=== PATIENT | male | born 1980 | race Caucasian/White ===

== ENCOUNTER 2019-12-07 08:02 | Day surgery (SDC) | payer SELFPAY ==
--- NOTE | 2019-12-05 15:20 | RAD_ITS ---
STUDY: X-RAY CHEST REASON FOR EXAM: Male, 39 years old. pre op heart cath next week TECHNIQUE: Frontal and lateral views of the chest. COMPARISON: None. FINDINGS: There is hyperinflation of the lungs consistent with chronic obstructive lung disease (COPD). No infiltrates. No effusions. There is no demonstrated pleural abnormality. Normal size heart. Normal mediastinum and che. Normal visualized pulmonary arteries. Normal visualized aortic arch and descending thoracic aorta. Normal visualized thoracic spine. Normal visualized ribs, clavicles, and shoulders. There is no demonstrated abnormality of the visualized soft tissue structures of the upper abdomen. RAD/Chest PA and Lateral IMPRESSION: There are findings consistent with COPD. There is no evidence of acute chest disease. Electronically Signed: Brennan Larsen MD at 18:40 EDT , Service support ,
[2019-12-05 15:48] LABS: Absolute Lymphocyte Count 2.51 X10^3/uL (0.83-4.51); Basophil# 0.03 X10^3/uL; Basophil% 0.4 % (0-1); Eosinophil# 0.19 X10^3/uL; Eosinophils% 2.6 % (0-5); Hematocrit 43.6 % (40-54); Hemoglobin 14.4 g/dL (13.0-16.5); Lymphocyte # 2.51 X10^3/ul (4.0); Lymphocyte % 33.9 % (19-41); Mean Corpuscular Hgb 28.5 pg (27.0-32.0); Mean Corpuscular Volume 86.3 fL (80-94); Mean Platelet Vol. 9.4 fl (6.2-12.0); Monocyte# 0.68 X10^3/uL; Monocyte% 9.2 % (0-10); NRBC Flagged by Analyzer 0 % (0-5); Neutrophil # 3.98 X10^3/uL (2.7-7.7); Neutrophil % 53.6 % (47-70); Platelet Count 265 K/mm3 (150-450); RBC Distribution Width CV 12.5 % (11.6-14.6); RBC Distribution Width SD 39.4 fl (35.1-43.9); Red Blood Count 5.05 M/mm3 (4.6-6.2); White Blood Count 7.4 K/mm3 (4.4-11.0)
[2019-12-05 16:15] LABS: Anion Gap 3 (5-15); BUN 19 mg/dL (7-18); BUN/Creat Ratio 19.6 RATIO (10-20); Calcium,Total 9.2 mg/dL (8.5-10.1); Chloride 107 mmol/L (98-107); Creatinine, Serum 0.97 mg/dL (0.70-1.30); EST Glomerular Filtration Rate 91 mL/min (>60); Est Glom Filt Rate - Afr Amer 110 mL/min (>60); Glucose 79 mg/dL (74-106); Potassium 4.1 mmol/L (3.5-5.1); Sodium Level 139 mmol/L (136-145)
--- NOTE | 2019-12-07 11:09 | CL.D_ITS ---
Patient Name: LOLLY CADE Study Date: 12/07/2019 Performing: Ronan Randall MD Ht: 74.01 inches 188 cm : 1980 Wt: 233.69 lbs 106 kg Age: 39 Gender: male BSA: 2.32 PROCEDURE(S) PERFORMED AZ75-IHQ/COR/LV CLINICAL PROFILE AND INDICATIONS Indications: Suspected CAD Heart Failure: None Stress/Imaging Stress/Image Study Performed: No CAD Presentations: Unstable angina. CONCLUSIONS Normal coronary arteries Normal LV size, wall motion,and systolic function RECOMMENDATIONS Medical therapy DESCRIPTION OF PROCEDURE The patient arrived to the procedure lab. The risks and benefits of the procedure as well as a full d escription of our services here and current unavailability of surgical backup were fully explained to the patient and/or their significant other prior to the catheterization. The Timeout was completed, verifying the correct patient and procedure. The patient's procedural site was prepped and draped in the usual fashion. Local anesthetic was given subcutaneously to right radial region with Lidocaine 2% . Using a modified Seldinger technique, arterial access was obtained via the right radial artery, a 6 Fr sheath was inserted. Left Coronary Artery selective angiography was performed in multiple views u sing a 5 Fr. 4.0 [place] catheter. Right Coronary Artery selective angiography was then performed in mu ltiple views using a 5 Fr. 4.0 [place] catheter. Left Ventriculography was performed in QUIROZ projection using a 5 Fr. Pigtail catheter. LV to AO pullback pressures were then recorded.The arterial sheath was pulled and a TR Band was applied for hemostasis-12 cc air CORONARY ANGIOGRAPHY DOMINANCE: Right Dominant LEFT HEART ASSESSMENT Left Ventricular Ejection Fraction: by LV Gram 60 % Normal LV wall motion Normal Left Ventricular systolic function Normal Left Ventricular systolic function LEFT MAIN: Angiographically normal LEFT ANTERIOR DESCENDING ARTERY: Angiographically normal CIRCUMFLEX ARTERY: Angiographically normal RIGHT CORONARY ARTERY: Angiographically normal COMPLICATIONS No Complications PROCEDURE MEDICATIONS Versed 1 mg IV Fentanyl 50 mcg IV Oxygen: 2 L/min via nasal cannula Heparin diluted in 23cc Heparinized saline. Patient given 10cc IA of this solution. 12/07/2019 10:33:5 8 Verapamil 2.5mg, Ntg 100mcgs, 2000 units of Heparin diluted in 23cc Heparinized saline. Patient give n 10cc IA of this solution. 12/07/2019 10:33:58 SUMMARY OF HEMODYNAMIC DATA Time AIR REST ECG 08:57:41 AO 100/76 (88) SA 10:36:15 LV 96/8, 11 10:44:12 LV 87/12, 24 10:44:19 LV 79/8, 10 10:45:17 LVp 91/8, 13 10:45:27 AOp 112/77 (93) 10:45:32 Signed By Ronan Randall MD On 12/07/2019 11:09:04 AM Ronan Randall MD
== END 2019-12-07 12:52 | disposition home or self-care (01) ==
PROVIDERS: PCP Family Medicine; Referring Provider Internal Medicine Cardiovascular Disease; Visit Provider Internal Medicine Cardiovascular Disease
DX: I20.0 Unstable angina (principal); R07.9 Chest pain, unspecified; I25.2 Old myocardial infarction; E66.9 Obesity, unspecified; Z68.30 Body mass index [BMI] 30.0-30.9, adult; Z79.82 Long term (current) use of aspirin; Z79.02 Long term (current) use of antithrombotics/antiplatelets; Z87.891 Personal history of nicotine dependence; Z82.49 Family history of ischemic heart disease and other diseases of the circulatory system
CPT/HCPCS: 36415; 71046; 80048; 85025; 93458; 99152; 99153; Q9967; C1769; C1894

== ENCOUNTER 2024-06-15 06:30 | Day surgery (SDC) | payer SELFPAY, OTHER ==
--- NOTE | 2024-06-14 10:45 | PAT.ANESEVAL ---
Pre-Assessment Diagnosis/Proposed Procedure Planned Operative Procedure(s): CSCOPE Anesthesia History Anesthesia History - pharmacy consultant: Anesthesia History - pharmacy consultant Hx Hospitalization No 06/14/24 09:49 Any Problems With Anesthesia No 06/14/24 09:49 Cholinesterase deficiency No 06/14/24 09:49 You/Your Family Experience No 06/14/24 09:49 fever (hyperthermia) with Relationship Recent Exposure to Contagious Disease Does patient have nerve No 06/14/24 09:49 stimulator Patient instructed to have device shut off --Does patient have Pacemaker or ICD? When Was Last Pacemaker Check QUESTION #4 FULL TEXT: You/Your Family Experience fever (hyperthermia) with Anesthesia Last Oral Intake Last Oral intake: Last Oral Intake NPO since Meds taken in AM with sips of water? Meds patient instructed to take am of surgery PONV PONV - pharmacy consultant: PONV - pharmacy consultant Female No 06/14/24 09:49 HX of Motion Sickness No 06/14/24 09:49 HX of N/V After Surgery No 06/14/24 09:49 Non-Smoker Yes 06/14/24 09:49 Duration of Surgery greater No 06/14/24 09:49 than 60 minutes Number of Risk Factors 1 06/14/24 09:49 PONV Score Low Risk 06/14/24 09:49 Height & Weight Height & Weight: Anesthesia: Height & Weight Height 6 ft 2 in 04/24/24 10:34 Respiratory Assessment Respiratory Assessment - pharmacy consultant: Respiratory Tract Infection Hx - pharmacy consultant Hx Respiratory Tract Infection No 06/14/24 09:49 STOP Sleep Apnea STOP Sleep Apnea - pharmacy consultant: STOP Sleep Apnea - pharmacy consultant Hx Hypertension Yes: NO MED 06/14/24 09:49 Hx Sleep Apnea Yes: WAS SUPPOSED TO GET 06/14/24 09:49 CPAP - NO F/U CPAP No 06/14/24 09:49 BIPAP No 06/14/24 09:49 Do you snore loudly (louder No 06/14/24 09:49 than talking or can be heard Do you often feel tired/ No 06/14/24 09:49 fatigued/ sleepy during daytime? Has anyone observed you stop No 06/14/24 09:49 breathing during sleep? STOP Results Positive 06/14/24 09:49 QUESTION #5 FULL TEXT : Do you snore loudly (louder than talking or can be heard through closed doors)? Tobacco Use History Tobacco Use History - pharmacy consultant: Tobacco Use History - pharmacy consultant Tobacco Use Smoking Status Former smoker 06/14/24 09:49 Hx Tobacco Use No 06/14/24 09:49 Years Smoking Packs Smoked per Day Smoking Cessation Date was No - quit smoking greater 06/14/24 09:49 within the last 15 years than 15 years ago Hx Smoking Cessation Date 04/04/01 06/14/24 09:49 Hx Smoking Cessation Counseling Hematologic Medial History Hematologic Hx - pharmacy consultant: Hematologic Medical Hx - wic site coordinator Hx of Blood Transfusion No 06/14/24 09:49 Hx of Transfusion in last 3 No 06/14/24 09:49 Months Date of Last Transfusion (if within last 3 months) Ever experience any problems No 06/14/24 09:49 with transfusion(s)? Specify any problems Hx of Preganancy in last 3 N/A 06/14/24 09:49 Months Nurse Filling Out Transfusion NBUCHER 06/14/24 09:49 & Questions: Date: 06/14/24 06/14/24 09:49 Time: 09:51 06/14/24 09:49 Patient unable to answer at this time (ie. confused, unrespo /Reproduction History /Reproductive History - pharmacy consultant: /Reproductive Hx- pharmacy consultant Hx Now No 06/14/24 09:49 Gestational Age (in weeks): EDC: Hx Hx Para Hx Section SAB No 06/14/24 09:49 PFSH Medical History (Updated 06/14/24 @ 09:54 by Alma Kessler) Wears glasses Anxiety Former smoker Hypertension Hx of colonic polyps Daytime hypersomnolence Obesity Abnormal EKG Home Medications ?Medication ?Instructions ?Recorded ?Last Taken ?Type multivitamin 1 tab PO QDAY 04/24/24 Unknown History Allergy/AdvReac Type Severity Reaction Status Date / Time No Known Allergies Allergy Verified 06/14/24 09:49 Family History (Updated 04/24/24 @ 10:27 by Elizabeth Urrutia) Grandfather Myocardial infarction, Onset Age: 60 Mother Pacemaker Other Colon cancer Surgical History (Updated 06/14/24 @ 09:54 by Alma Kessler) Hx of colonoscopy History of left heart catheterization (12/07/19) H/O arthroscopic knee surgery Social History (Updated 04/24/24 @ 10:28 by Elizabeth Urrutia) household members: spouse current occupational status: employed 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 Status: Former smoker alcohol intake: never substance use type: does not use pavithra/congregation: Congregation 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
[2024-06-15] VITALS (7 sets, daily range): BP systolic 124–147; BP diastolic 83–101; PULSE 77–94; RESP 16–20; TEMP 36.5–37; O2SAT 96–97; BMI 30.9
--- NOTE | 2024-06-15 07:09 | PRE.ANES_ITS ---
ASA Classification* ASA Classification ASA Classification: 2 Assessment & Plan Anesthesia* Anesthesia Assessment Anesthesia Assessment: Discussed sedation and/or anesthesia options, risks, benefits, and alternatives with patient/parents/legal guardian/POA. Questions invited. The patient/parents/legal guardian/POA seems to understand and agrees to proceed with anesthesia plan. Reviewed the physical assessment, medical history, allergy history and patient home medications list prior to surgery/procedure/anesthetic and documented any changes. Performed airway and anesthesia risk assessments. Anesthesia Type Anesthesia Type: MAC Anesthesia Focused Assessment* Temperature: 97.7 F Pulse Rate: 78 Blood Pressure: 140/100 Respiratory Rate: 16 Pulse Ox: 97 Airway Assessment Mouth opens: >3 cm Mallampati Score: II Focused Labs Anesthesia Preop lab: CBC WBC 7.4 K/mm3 (4.4-11.0) 12/05/19 15:04 12/05/19 RBC 5.05 M/mm3 (4.6-6.2) 12/05/19 15:12/05/19 Hgb 14.4 g/dL (13.0-16.5) 12/05/19 15:12/05/19 Hct 43.6 % (40-54) 12/05/19 15:12/05/19 Plt Count 265 K/mm3 (150-450) 12/05/19 15:04 12/05/19 CHEMISTRY Potassium 4.1 mmol/L (3.5-5.1) 12/05/19 15:04 12/05/19 Sodium 139 mmol/L (136-145) 12/05/19 15:04 12/05/19 BUN 19 mg/dL (7-18) H 12/05/19 15:12/05/19 Creatinine 0.97 mg/dL (0.70-1.30) 12/05/19 15:12/05/19 Glucose 79 mg/dL (74-106) 12/05/19 15:12/05/19 COAG Pre-Assessment Diagnosis/Proposed Procedure Planned Operative Procedure(s): CSCOPE Anesthesia History Anesthesia History - director data analytics: Anesthesia History - director data analytics Hx Hospitalization No 06/14/24 09:49 Any Problems With Anesthesia No 06/14/24 09:49 Cholinesterase deficiency No 06/14/24 09:49 You/Your Family Experience No 06/14/24 09:49 fever (hyperthermia) with Relationship Recent Exposure to Contagious No 06/15/24 06:52 Disease Does patient have nerve No 06/14/24 09:49 stimulator Patient instructed to have device shut off --Does patient have Pacemaker No 06/15/24 06:52 or ICD? When Was Last Pacemaker Check QUESTION #4 FULL TEXT: You/Your Family Experience fever (hyperthermia) with Anesthesia Last Oral Intake Last Oral intake: Last Oral Intake NPO since 04:30 06/15/24 06:52 Meds taken in AM with sips of No 06/15/24 06:52 water? Meds patient instructed to take am of surgery PONV PONV - director data analytics: PONV - director data analytics Female No 06/14/24 09:49 HX of Motion Sickness No 06/14/24 09:49 HX of N/V After Surgery No 06/14/24 09:49 Non-Smoker Yes 06/14/24 09:49 Duration of Surgery greater No 06/14/24 09:49 than 60 minutes Number of Risk Factors 1 06/14/24 09:49 PONV Score Low Risk 06/14/24 09:49 Height & Weight Height & Weight: Anesthesia: Height & Weight Height 6 ft 2 in 06/15/24 06:52 Weight: 109.4 kg 06/15/24 06:52 Body Mass Index (BMI) 30.9 06/15/24 06:52 Respiratory Assessment Respiratory Assessment - director data analytics: Respiratory Tract Infection Hx - director data analytics Hx Respiratory Tract Infection No 06/14/24 09:49 STOP Sleep Apnea STOP Sleep Apnea - director data analytics: STOP Sleep Apnea - director data analytics Hx Hypertension Yes: NO MED 06/14/24 09:49 Hx Sleep Apnea Yes: WAS SUPPOSED TO GET 06/14/24 09:49 CPAP - NO F/U CPAP No 06/14/24 09:49 BIPAP No 06/14/24 09:49 Do you snore loudly (louder No 06/14/24 09:49 than talking or can be heard Do you often feel tired/ No 06/14/24 09:49 fatigued/ sleepy during daytime? Has anyone observed you stop No 06/14/24 09:49 breathing during sleep? STOP Results Positive 06/14/24 09:49 QUESTION #5 FULL TEXT : Do you snore loudly (louder than talking or can be heard through closed doors)? Tobacco Use History Tobacco Use History - director data analytics: Tobacco Use History - director data analytics Tobacco Use Smoking Status Former smoker 06/14/24 09:49 Hx Tobacco Use No 06/14/24 09:49 Years Smoking Packs Smoked per Day Smoking Cessation Date was No - quit smoking greater 06/14/24 09:49 within the last 15 years than 15 years ago Hx Smoking Cessation Date 04/04/01 06/14/24 09:49 Hx Smoking Cessation Counseling Hematologic Medial History Hematologic Hx - director data analytics: Hematologic Medical Hx - inflated pad buffer Hx of Blood Transfusion No 06/14/24 09:49 Hx of Transfusion in last 3 No 06/14/24 09:49 Months Date of Last Transfusion (if within last 3 months) Ever experience any problems No 06/14/24 09:49 with transfusion(s)? Specify any problems Hx of Preganancy in last 3 N/A 06/14/24 09:49 Months Nurse Filling Out Transfusion NBUCHER 06/14/24 09:49 & Questions: Date: 06/14/24 06/14/24 09:49 Time: 09:51 06/14/24 09:49 Patient unable to answer at this time (ie. confused, unrespo /Reproduction History /Reproductive History - director data analytics: /Reproductive Hx- director data analytics Hx Now No 06/14/24 09:49 Gestational Age (in weeks): EDC: Hx Hx Para Hx Section SAB No 06/14/24 09:49 PFSH Medical History Wears glasses Anxiety Former smoker Hypertension Hx of colonic polyps Daytime hypersomnolence Obesity Abnormal EKG Home Medications ?Medication ?Instructions ?Recorded ?Last Taken ?Type multivitamin 1 tab PO QDAY 04/24/24 Unkno wn History Allergy/AdvReac Type Severity Reaction Status Date / Time No Known Allergies Allergy Verified 06/15/24 06:51 Family History Grandfather Myocardial infarction, Onset Age: 60 Mother Pacemaker Other Colon cancer Surgical History Hx of colonoscopy History of left heart catheterization (12/07/19) H/O arthroscopic knee surgery Social History household members: spouse current occupational status: employed 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
--- NOTE | 2024-06-15 07:16 | PCM.HP.STD ---
HPI - General General Date of Admission: 06/15/24 Date of Service: 06/15/24 Chief Complaint: colonoscopy HPI Narrative LOLLY CADE, is a 43 M who presents for colonoscopy. His last colonoscopy was about 3 years ago. It sounds as though he had several polyps removed. He does have a positive family history for colon cancer. It sounds as though several family members who had colon cancer. He denies any recent GI symptoms or problems [facility] Medical History Wears glasses Anxiety Former smoker Hypertension Hx of colonic polyps Daytime hypersomnolence Obesity Abnormal EKG Home Medications ?Medication ?Instructions ?Recorded ?Last Taken ?Type multivitamin 1 tab PO QDAY 04/24/24 Unknown History Allergy/AdvReac Type Severity Reaction Status Date / Time No Known Allergies Allergy Verified 06/15/24 06:51 Family History Grandfather Myocardial infarction, Onset Age: 60 Mother Pacemaker Other Colon cancer Surgical History Hx of colonoscopy History of left heart catheterization (12/07/19) H/O arthroscopic knee surgery Social History household members: spouse current occupational status: employed 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 Status: Former smoker alcohol intake: never substance use type: does not use pavithra/yazidism: Mandaen additional social history: Self pay-Mandaen Aid Vital Signs Vital Signs Vital Signs: 06/15/24 06:52 06/15/24 06:52 06/15/24 07:11 Temperature 97.7 F L 97.7 F L Temperature Source Temporal Pulse Rate 78 78 Respiratory Rate 16 16 Respiratory Pattern Normal Blood Pressure 140/100 H 140/100 H Blood Pressure Mean 113 Blood Pressure Source Monitor Blood Pressure Position Semi-Fowlers Blood Pressure Location Right Arm Pulse Ox 97 97 Oxygen Delivery Method Room Air Weight Weight: 241 lb 2.971 oz Body Mass Index (BMI) 30.9 Physical Exam Const alert, oriented x3 and no apparent distress Assessment & Plan Assessment/Plan (1) Encounter for screening for malignant neoplasm of colon: PLAN: Plan Patient is a 43-year-old male in need of a surveillance colonoscopy. He has a history of polyps as well as a family history of colon cancer. We discussed the details of the planned procedure including risks benefits and alternatives. He wishes to proceed. This began momentarily Charges/Coding Visit Charges Inpatient E&M: 08601 Init Hosp L1
--- NOTE | 2024-06-15 07:47 | OP.COLON_ITS ---
Patient Name: Kevin Marcus Procedure Date: 06/15/2024 7:11 AM Date of : 1980 Age: 43 Procedure: Colonoscopy Indications: High risk colon cancer surveillance: Personal history of colonic polyps, Family history of colon cancer in a first-degree relative before age 60 years Providers: Serge Montenegro MD Referring MD: Serge Montenegro MD Medicines: Monitored Anesthesia Care Patient Profile: Refer to note in patient chart for documentation of history and physical. Last Colonoscopy: 3 years ago. Complications: No immediate complications. Estimated blood loss: None. Procedure: Pre-Anesthesia Assessment: - Prior to the procedure, a History and Physical was performed, and patient medications and allergies were reviewed. The patient's tolerance of previous anesthesia was also reviewed. The risks and benefits of the procedure and the sedation options and risks were discussed with the patient. All questions were answered, and informed consent was obtained. Prior Anticoagulants: The patient has taken no anticoagulant or antiplatelet agents. ASA Grade Assessment: II - A patient with mild systemic disease. After reviewing the risks and benefits, the patient was deemed in satisfactory condition to undergo the procedure. After I obtained informed consent, the scope was passed under direct vision. Throughout the procedure, the patient's blood pressure, pulse, and oxygen saturations were monitored continuously. The adult colonoscope was introduced through the anus and advanced to the cecum, identified by appendiceal orifice and ileocecal valve. The ileocecal valve, appendiceal orifice, and rectum were photographed. The entire colon was well visualized. The colonoscopy was performed without difficulty. The patient tolerated the procedure well. The quality of the bowel preparation was adequate. Moderate Sedation: See the other procedure note for documentation of moderate sedation with intraservice time. Scope In: 7:29:12 AM Scope Withdrawal Time 0 hours 7 minutes 52 seconds Scope Out: 7:42:03 AM Total Procedure Duration Time 0 hours 12 minutes 51 seconds Findings: The perianal and digital rectal examinations were normal. Non-bleeding internal hemorrhoids were found during retroflexion. The hemorrhoids were moderate. The exam was otherwise without abnormality on direct and retroflexion views. Impression: - Non-bleeding internal hemorrhoids. - The examination was otherwise normal on direct and retroflexion views. - No specimens collected. Recommendation: - Discharge patient to home (ambulatory). - High fiber diet. - Repeat colonoscopy in 3 - 5 years for surveillance. - Return to my office PRN. - Continue present medications. Procedure Code(s): --- Professional --- 27775, Colonoscopy, flexible; diagnostic, including collection of specimen(s) by brushing or washing, when performed (separate procedure) Diagnosis Code(s): --- Professional --- Z86.010, Personal history of colonic polyps Z80.0, Family history of malignant neoplasm of digestive organs K64.8, Other hemorrhoids CPT copyright 2021 [employer]. All rights reserved. The codes documented in this report are preliminary and upon rope making machine operator review may be revised to meet current compliance requirements. Serge Montenegro MD 06/15/2024 7:47:10 AM This report has been signed electronically. Number of Addenda: 0 Note Initiated On: 06/15/2024 7:11 AM
--- NOTE | 2024-06-15 07:47 | OP.CCLET_ITS ---
06/15/2024 Rakesh Encarnacion Re : Colonoscopy procedure for Kevin Marcus Dear Alysha This procedure was performed on Saturday, June 15, 2024. My impressions and recommendations are as follows: Impressions : - Non-bleeding internal hemorrhoids. - The examination was otherwise normal on direct and retroflexion views. - No specimens collected. Recommendations : - Discharge patient to home (ambulatory). - High fiber diet. - Repeat colonoscopy in 3 - 5 years for surveillance. - Return to my office PRN. - Continue present medications. My findings are described in the full procedure note, which is enclosed. If I can be of further assistance, please feel free to contact me at . Sincerely, Serge Montenegro MD 06/15/2024 7:47:10 AM This report has been signed electronically.
--- NOTE | 2024-06-15 07:49 | PCM.POST.ANE ---
Anesthesia: Postop Eval I Current Vital Signs Temperature: 97.9 F Pulse Rate: 94 Blood Pressure: 127/101 Respiratory Rate: 20 Pulse Ox: 97 Oxygen Delivery Method: Room Air Assessment Airway patent: Yes Spontaneous unlabored respirations: Yes Mental status: Asleep nausea: No Vomiting: No Anesthesia Complication: No Fluid Hydration Crystalloid volume administer (ml): 20 Total IV fluid infused: 20 Progress Note Anesthesia document: Postop Eval 1 completed: Yes
--- NOTE | 2024-06-15 09:29 | POSTOPAN2_ITS ---
Anesthesia Postop Eval I Sum Postop Eval Completion status Anesthesia document: Postop Eval 1 completed: Yes Anesthesia Postop Eval I Summary Anesthesia Postop Eval I Summary: Anesthesia Postop Eval I: Assessment Summary Airway patent Yes 06/15/24 07:50 [email or web address] Spontaneous unlabored Yes 06/15/24 07:50 [email or web address] respirations Mental status Asleep 06/15/24 07:50 [email or web address] nausea No 06/15/24 07:50 [email or web address] Vomiting No 06/15/24 07:50 [email or web address] Anesthesia Postop Eval I: Fluid Summary Crystalloid volume administer 20 06/15/24 07:50 [email or web address] (ml) Colloids volume administered ( ml) Blood Product volume administered (ml) Total IV fluid infused 20 06/15/24 07:50 [email or web address] Anesthesia Postop Eval I: Summary Notes Anesthesia Complication No 06/15/24 07:50 [email or web address] Anesthesia Complication Comment: Post-operative progress note Anesthesia: Postop Eval II Evaluation Mental status: Awake Pain Level: 0 nausea: No Vomiting: No
--- NOTE | 2024-06-15 09:29 | PCM.POSTANE2 ---
Anesthesia Postop Eval I Sum Postop Eval Completion status Anesthesia document: Postop Eval 1 completed: Yes Anesthesia Postop Eval I Summary Anesthesia Postop Eval I Summary: Anesthesia Postop Eval I: Assessment Summary Airway patent Yes 06/15/24 07:50 [email or web address] Spontaneous unlabored Yes 06/15/24 07:50 [email or web address] respirations Mental status Asleep 06/15/24 07:50 [email or web address] nausea No 06/15/24 07:50 [email or web address] Vomiting No 06/15/24 07:50 [email or web address] Anesthesia Postop Eval I: Fluid Summary Crystalloid volume administer 20 06/15/24 07:50 [email or web address] (ml) Colloids volume administered ( ml) Blood Product volume administered (ml) Total IV fluid infused 20 06/15/24 07:50 [email or web address] Anesthesia Postop Eval I: Summary Notes Anesthesia Complication No 06/15/24 07:50 [email or web address] Anesthesia Complication Comment: Post-operative progress note Anesthesia: Postop Eval II Evaluation Mental status: Awake Pain Level: 0 nausea: No Vomiting: No
== END 2024-06-15 08:21 | disposition home or self-care (01) ==
LOC: EN 06:33 → AC 06:34
PROVIDERS: PCP Family Medicine; Referring Provider Surgery; Visit Provider Surgery
PROC: 0DJD8ZZ Inspection of Lower Intestinal Tract, Via Natural or Artificial Opening Endoscopic (ICD-10-PCS; CPT 45378; principal; 2024-06-15 07:25)
DX: Z12.11 Encounter for screening for malignant neoplasm of colon (principal); K64.8 Other hemorrhoids; I10 Essential (primary) hypertension; Z86.0100 Personal history of colon polyps, unspecified; Z87.891 Personal history of nicotine dependence; Z80.0 Family history of malignant neoplasm of digestive organs
CPT/HCPCS: 45378; A4216